=== PATIENT | female | born 1950 | race African-American/Black ===

== ENCOUNTER 2018-01-02 05:38 | Inpatient (IN) | payer MEDICARE, OTHER ==
[~2018-01-02] VITALS: Ht 165.1 cm; Wt 72.6 kg
[2018-01-02] MEDS ORDERED: Albuterol ud Inhalation HHN ONE ×2 (05:45→09:30)
[2018-01-02] MEDS ORDERED: Ipratropium 0.02% Inh Soln 2.5ml UD HHN ONE (05:45)
[2018-01-02] MEDS ORDERED: Solu-MEDROL 125mg Inj IVP ONE (05:45)
--- NOTE | 2018-01-02 05:45 | Emergency Room Report ---
History of Present Illness General Chief Complaint: Dyspnea/Respdistress Source: Patient Present Illness HPI Patient presents with complaints of shortness of breath She reports previous history of COPD Over the past 7 days she has been worsening Even with short exertion She feels increasingly short of breath denies any vomiting denies any diarrhea Denies any recent URI Patient has found herself using her albuterol machine more than usual and is any neck pain or photophobia denies any chest pain Allergies: Coded Allergies: No Known Allergies (Unverified , 01/02/18) Patient History Past Medical History: see triage record Pertinent Family History: none Reviewed Nursing Documentation: PMH: Agreed, PSxH: Agreed Nursing Documentation-PMH Hx COPD: Yes Hx Diabetes: Yes Review of Systems All Other Systems: negative except mentioned in HPI Physical Exam Vital Signs Date Time Temp Pulse Resp B/P (MAP) Pulse Ox O2 Delivery O2 Flow Rate FiO2 01/02/18 05:34 98.0 94 24 197/115 97 Simple Mask 10.0 98.1 Sp02 EP Interpretation: reviewed, normal General Appearance: mild distress - Appears short of breath Head: normocephalic, atraumatic Eyes: bilateral eye PERRL, bilateral eye EOMI ENT: hearing grossly normal, normal pharynx, TMs + canals normal, uvula midline Neck: full range of motion, supple, no meningismus, no bony tend Respiratory: no rhonchi, no respiratory distress, no accessory muscle use, other - Patient has crackles and fine wheezing bilaterally, she is also tachypneic Cardiovascular #1: normal peripheral pulses, regular rate, rhythm, no edema, no gallop, no JVD, no murmur Gastrointestinal: normal bowel sounds, non tender, soft, no mass, no organomegaly, non-distended, no guarding, no hernia, no pulsatile mass, no rebound Genitourinary: no CVA tenderness Musculoskeletal: normal inspection Neurologic: oriented x3, responsive, streetcar starter III-XII nml as tested, motor strength/ tone normal, sensory intact Psychiatric: mood/affect normal Skin: normal color, no rash, warm/dry, palpation normal Lymphatic: normal inspection, no adenopathy Procedures Critical Care Time Critical Care Time 40 minutes for initial critical presentation Shortness of breath and respiratory distress requiring acute intervention Concern for respiratory failure not including any procedural time Medical Decision Making Diagnostic Impression: Primary Impression: COPD exacerbation ER Course Patient is a fairly complex patient with multiple differential to consideration including but not limited to cardiac cardiopulmonary and vascular emergencies Patient initiated emergently on breathing treatments Steroids and magnesium Patient continues to do better in the emergency room However will require further inpatient care Labs Test 01/02/18 05:50 White Blood Count 9.7 K/UL (4.8-10.8) Red Blood Count 4.93 M/UL (4.20-5.40) Hemoglobin 14.4 G/DL (12.0-16.0) Hematocrit 43.6 % (37.0-47.0) Mean Corpuscular Volume 88 FL (80-99) Mean Corpuscular Hemoglobin 29.2 PG (27.0-31.0) Mean Corpuscular Hemoglobin Concent 33.1 G/DL (32.0-36.0) Red Cell Distribution Width 14.2 % (11.6-14.8) Platelet Count 268 K/UL (150-450) Mean Platelet Volume 7.6 FL (6.5-10.1) Neutrophils (%) (Auto) 64.4 % (45.0-75.0) Lymphocytes (%) (Auto) 17.6 % (20.0-45.0) Monocytes (%) (Auto) 5.6 % (1.0-10.0) Eosinophils (%) (Auto) 11.5 % (0.0-3.0) Basophils (%) (Auto) 1.0 % (0.0-2.0) Sodium Level 141 MMOL/L (136-145) Potassium Level 4.0 MMOL/L (3.5-5.1) Chloride Level 104 MMOL/L (98-107) Carbon Dioxide Level 27 MMOL/L (21-32) Anion Gap 10 mmol/L (5-15) Blood Urea Nitrogen 19 mg/dL (7-18) Creatinine 1.1 MG/DL (0.55-1.30) Estimat Glomerular Filtration Rate > 60 mL/min (>60) Glucose Level 120 MG/DL (74-106) Calcium Level 9.3 MG/DL (8.5-10.1) Total Bilirubin 0.2 MG/DL (0.2-1.0) Aspartate Amino Transf (AST/SGOT) 30 U/L (15-37) Alanine Aminotransferase (ALT/SGPT) 34 U/L (12-78) Alkaline Phosphatase 138 U/L (46-116) Total Creatine Kinase 427 U/L (26-308) Creatine Kinase MB 10.3 NG/ML (0.0-3.6) Creatine Kinase MB Relative Index 2.4 Troponin I 0.075 ng/mL (0.000-0.056) Pro-B-Type Natriuretic Peptide 754 pg/mL (0-125) Total Protein 7.5 G/DL (6.4-8.2) Albumin 3.3 G/DL (3.4-5.0) Globulin 4.2 g/dL Albumin/Globulin Ratio 0.8 (1.0-2.7) Lipase 200 U/L (73-393) Rhythm Strip Diag. Results EP Interpretation: yes Rate: 89 Rhythm: NSR, no PVC's, no ectopy Chest X-Ray Diagnostic Results Chest X-Ray Diagnostic Results : Chest X-Ray Ordered: Yes # of Views/Limited/Complete: 1 View Indication: Shortness of Breath EP Interpretation: Yes Interpretation: no consolidation, no effusion, no pneumothorax, no acute cardiopulmonary disease Impression: No acute disease Electronically Signed by: Ugo Parra DO Last Vital Signs Date Time Temp Pulse Resp B/P (MAP) Pulse Ox O2 Delivery O2 Flow Rate FiO2 01/02/18 05:34 98.0 94 24 197/115 97 Simple Mask 10.0 98.1 Status: improved Disposition: ADMITTED INPATIENT Condition: Serious UGO PARRA D.O. Jan 02, 2018 05:45
[2018-01-02 06:32] LABS: EOSINOPHILS % (AUTO) 11.5 % (0.0-3.0); HEMATOCRIT 43.6 % (37.0-47.0); HEMOGLOBIN 14.4 G/DL (12.0-16.0); LYMPHOCYTES % (AUTO) 17.6 % (20.0-45.0); MEAN CORPUSCULAR VOLUME 88 FL (80-99); MONOCYTES % (AUTO) 5.6 % (1.0-10.0); NEUTROPHILS % (AUTO) 64.4 % (45.0-75.0); PLATELET COUNT 268 K/UL (150-450); RED BLOOD COUNT 4.93 M/UL (4.20-5.40); RED CELL DISTRIBUTION WIDTH 14.2 % (11.6-14.8); WHITE BLOOD COUNT 9.7 K/UL (4.8-10.8)
[2018-01-02 06:43] LABS: ANION GAP 10 mmol/L (5-15); BLOOD UREA NITROGEN 19 mg/dL (7-18); CALCIUM 9.3 MG/DL (8.5-10.1); CARBON DIOXIDE 27 MMOL/L (21-32); CHLORIDE 104 MMOL/L (98-107); CREATININE 1.1 MG/DL (0.55-1.30); SODIUM 141 MMOL/L (136-145)
[2018-01-02 06:53] LABS: ALANINE AMINOTRANSFERASE 34 U/L (12-78); ALBUMIN 3.3 G/DL (3.4-5.0); ALBUMIN/GLOBULIN RATIO 0.8 (1.0-2.7); ALKALINE PHOSPHATASE 138 U/L (46-116); ASPARTATE AMINO TRANSFERASE 30 U/L (15-37); BILIRUBIN,TOTAL 0.2 MG/DL (0.2-1.0); CKMB 10.3 NG/ML (0.0-3.6); CREATINE KINASE 427 U/L (26-308)
[2018-01-02 07:17] VITALS: BP 175/79
[2018-01-02 09:45] VITALS: BP 149/79
--- NOTE | 2018-01-02 09:53 | Diagnostic Imaging Report ---
Indication: Dyspnea Comparison: None A single view chest radiograph was obtained. Findings: No definite infiltrate or pulmonary vascular congestion identified. The heart is enlarged. The aorta is mildly enlarged consistent with atherosclerotic vascular disease. The bones are osteopenic. Impression: No acute disease
[2018-01-02] MEDS ORDERED: Albuterol/Ipratropium 3ml neb HHN PRN (10:15)
[2018-01-02] MEDS ORDERED: Nitroglycerin Subl 0.4mg tab SL PRN (10:15)
[2018-01-02] MEDS ORDERED: Flu Vaccine Quadrivalent 0.5ml IM ONE (10:15)
[2018-01-02] MEDS: Ipratropium 0.02% Inh Soln 2.5ml UD HHN SCH ×4 (11:00→23:41)
[2018-01-02 11:45] VITALS: BP 167/79
[2018-01-02 12:25] VITALS: BP 164/97
[2018-01-02] MEDS: NS w/KCl 40mEq 1,000 ML IV SCH ×2 (13:56→23:28)
--- NOTE | 2018-01-02 16:25 | Cardiology Report ---
APPROVED REPORT EKG Measurement Heart [id number] NE [id number] [id number] Sinus rhythm with occasional premature ventricular complexes Possible Left atrial enlargement Left anterior fascicular block Nonspecific ST abnormality Abnormal ECG
[2018-01-02] MEDS ORDERED: traMADol 50mg tab ORAL PRN (18:00)
--- NOTE | 2018-01-02 20:19 | History & Physical ---
History and Physical History & Physicial ID # [id number] Robby Augustine Jan 02, 2018 20:19
[2018-01-02] MEDS: Docusate 100mg cap ORAL SCH (20:30)
[2018-01-02] MEDS: Heparin 5000 units/ml inj SUBQ SCH (20:33)
[2018-01-02] MEDS ORDERED: Zolpidem 5mg tab ORAL PRN (21:00)
[2018-01-02] MEDS ORDERED: Pneumococcal Vaccine 25mcg/0.5ml IM ONE (21:00)
[2018-01-02] MEDS ORDERED: ATORVASTATIN CA20 MG ORAL (21:51)
[2018-01-02] MEDS ORDERED: LISINOPRIL-HCT1 EAC2 ORAL (21:51)
[2018-01-02] MEDS ORDERED: METFORMIN HCL5000 GM MC (21:57)
[2018-01-03] VITALS (9 sets, daily range): BP systolic 155–184; BP diastolic 79–132
[2018-01-03] MEDS: Ipratropium 0.02% Inh Soln 2.5ml UD HHN SCH ×6 (04:10→23:18)
--- NOTE | 2018-01-03 05:15 | History and Physical Report ---
DATE OF ADMISSION: 01/02/2018 NOTE: POOR AUDIO REASON FOR ADMISSION: COPD exacerbation. HISTORY OF PRESENT ILLNESS: The patient is a pleasant 67-year-old female with past medical history significant for COPD, at this time presents with exacerbation of shortness of breath and increasingly short of breath. Denies any diarrhea or constipation. No history of DVT. No history of pulmonary embolism. No history of malignancy at this time. and currently symptoms are improved. Consulted Dr. Nice, pulmonary team. PAST MEDICAL HISTORY: As noted above. PAST SURGICAL HISTORY: None reported. REVIEW OF SYSTEMS: CONSTITUTIONAL: No fevers, chills, or night sweats. SKIN: No rashes, bumps, or itching. HEENT: No headache, hearing or vision changes. BREASTS: No lumps, pain, or discharge. PULMONARY: No cough, sputum, or shortness of breath. GASTROINTESTINAL: No nausea, vomiting, or diarrhea. GENITOURINARY: No dysuria, frequency, or urgency. MUSCULOSKELETAL: No joint swelling, muscle pain, or trauma. PHYSICAL EXAMINATION: VITAL SIGNS: Reviewed. GENERAL: No acute distress. PULMONARY: Decreased breath sounds. CARDIOVASCULAR: Regular rate. No S3 or S4. ABDOMEN: Soft, nontender, and nondistended. EXTREMITIES: No cyanosis, swelling, or edema. LABORATORY DATA: WBC is 9.7, hemoglobin , hematocrit 44, and platelet count 248,000. Chemistry reviewed, BUN of 19, creatinine 1.1, glucose 120. ASSESSMENT AND RECOMMENDATIONS: 1. Chronic obstructive pulmonary disease exacerbation. Recommend the patient to get oxygen as well as steroids as well as breathing treatments. . Pulmonary team consulted. 2. Tachycardia, to hypertension. Closely monitor. Consult the Cardiology Service. Premature ventricular contractions noted. The patient is on telemetry. Closely monitor again. 3. Azotemia. Recommend Nephrology Service evaluation. 4. Hypoalbuminemia and malnutrition. Closely monitor for improvement, potentially secondary to decreased oral intake. 5. secondary to reactive process. I appreciate the consultation. Robby Augustine M.D. DR: Drew JOB#: [id number] CC:
[2018-01-03] MEDS: metFORMIN 500mg tab ORAL SCH ×2 (05:38→17:15)
[2018-01-03] MEDS: Heparin 5000 units/ml inj SUBQ SCH ×3 (05:39→21:18)
[2018-01-03] MEDS: HydrALAZINE 25mg tab ORAL SCH ×4 (05:44→23:39)
[2018-01-03 07:20] LABS: BASOPHILS % (AUTO) 0.9 % (0.0-2.0); EOSINOPHILS % (AUTO) 1.1 % (0.0-3.0); HEMATOCRIT 43.3 % (37.0-47.0); HEMOGLOBIN 14.4 G/DL (12.0-16.0); LYMPHOCYTES % (AUTO) 13.9 % (20.0-45.0); MEAN CORPUSCULAR VOLUME 89 FL (80-99); MONOCYTES % (AUTO) 7.3 % (1.0-10.0); NEUTROPHILS % (AUTO) 76.8 % (45.0-75.0); PLATELET COUNT 292 K/UL (150-450); RED BLOOD COUNT 4.87 M/UL (4.20-5.40); RED CELL DISTRIBUTION WIDTH 14.3 % (11.6-14.8)
[2018-01-03 07:33] LABS: ANION GAP 7 mmol/L (5-15); BLOOD UREA NITROGEN 21 mg/dL (7-18); CALCIUM 9.2 MG/DL (8.5-10.1); CARBON DIOXIDE 27 MMOL/L (21-32); CHLORIDE 105 MMOL/L (98-107); CREATININE 1.1 MG/DL (0.55-1.30); POTASSIUM 4.4 MMOL/L (3.5-5.1); SODIUM 139 MMOL/L (136-145)
--- NOTE | 2018-01-03 07:58 | Cardiology Progress Note ---
Assessment/Plan Assessment/Plan The patient is seen and examined, full consult note will be dictated shortly. Objective Last 24 Hour Vital Signs Date Time Temp Pulse Resp B/P (MAP) Pulse Ox O2 Delivery O2 Flow Rate FiO2 01/03/18 05:44 171/103 01/03/18 04:02 95 01/03/18 04:00 97.9 95 20 171/103 Nasal Cannula 2.0 97.9 01/03/18 03:14 93 20 100 Nasal Cannula 2.0 28 01/03/18 03:02 98 20 100 Nasal Cannula 2.0 28 01/03/18 00:01 97 01/02/18 23:17 103 21 99 Nasal Cannula 2.0 28 01/02/18 23:08 101 22 97 Nasal Cannula 2.0 28 01/02/18 19:50 96 01/02/18 19:40 104 20 97 Room Air 21 01/02/18 19:30 102 20 94 Room Air 21 01/02/18 16:00 95 01/02/18 15:10 93 20 97 Room Air 01/02/18 15:05 105 23 94 Room Air 01/02/18 12:50 102 01/02/18 12:25 98.1 99 20 164/97 94 Nasal Cannula 2.0 28 98.1 01/02/18 12:07 98.1 89 20 167/79 93 Nasal Cannula 2.0 28 98.1 01/02/18 11:45 98.1 89 20 167/79 93 Nasal Cannula 2.0 28 98.1 01/02/18 10:55 85 20 100 Nasal Cannula 2.0 28 01/02/18 10:44 87 23 95 Nasal Cannula 2.0 28 01/02/18 09:45 98.1 89 26 149/79 93 Room Air 10.0 21 98.1 Intake and Output 01/02/18 01/03/18 19:00 07:00 Intake Total 120 ml 1153.3 ml Balance 120 ml 1153.3 ml Intake Oral 120 ml IV Total 1153.3 ml # Voids 2 Laboratory Tests Test 01/03/18 06:20 White Blood Count 14.0 K/UL (4.8-10.8) H Red Blood Count 4.87 M/UL (4.20-5.40) Hemoglobin 14.4 G/DL (12.0-16.0) Hematocrit 43.3 % (37.0-47.0) Mean Corpuscular Volume 89 FL (80-99) Mean Corpuscular Hemoglobin 29.6 PG (27.0-31.0) Mean Corpuscular Hemoglobin Concent 33.3 G/DL (32.0-36.0) Red Cell Distribution Width 14.3 % (11.6-14.8) Platelet Count 292 K/UL (150-450) Mean Platelet Volume 8.6 FL (6.5-10.1) Neutrophils (%) (Auto) 76.8 % (45.0-75.0) H Lymphocytes (%) (Auto) 13.9 % (20.0-45.0) L Monocytes (%) (Auto) 7.3 % (1.0-10.0) Eosinophils (%) (Auto) 1.1 % (0.0-3.0) Basophils (%) (Auto) 0.9 % (0.0-2.0) Activated Partial Thromboplast Time 20 SEC (23-33) L Sodium Level 139 MMOL/L (136-145) Potassium Level 4.4 MMOL/L (3.5-5.1) Chloride Level 105 MMOL/L (98-107) Carbon Dioxide Level 27 MMOL/L (21-32) Anion Gap 7 mmol/L (5-15) Blood Urea Nitrogen 21 mg/dL (7-18) H Creatinine 1.1 MG/DL (0.55-1.30) Estimat Glomerular Filtration Rate > 60 mL/min (>60) Glucose Level 88 MG/DL (74-106) Calcium Level 9.2 MG/DL (8.5-10.1) Magnesium Level 1.9 MG/DL (1.8-2.4) Troponin I Pending SANDER ZAVALA Jan 03, 2018 07:58
--- NOTE | 2018-01-03 08:43 | Consultation ---
History of Present Illness General Date patient seen: Jan 03, 2018 Chief Complaint: Dyspnea/Respdistress Reason for Consultation: dyspnea Present Illness HPI 67 year old female with hx of COPD, smoking presents with complaints of shortness of breath over the past 7 days she has been worsening She feels increasingly short of breath. Patient has found herself using her albuterol machine more than usual and is any neck pain or photophobia denies any chest pain. She is admitted for acute exacerbation of COPD and bronchitis. Allergies: Coded Allergies: No Known Allergies (Unverified , 01/02/18) Medication History Scheduled Atorvastatin Calcium* (Atorvastatin Calcium*), 10 MG ORAL BEDTIME, (Reported) Lisinopril/Hydrochlorothiazide 20-25 Mg Tab (Lisinopril-Hctz 20-25 Mg Tab), 2 TAB ORAL DAILY, (Reported) Metformin Hcl (Metformin Hcl), 500 MG MC BID, (Reported) Patient History Healthcare decision maker Resuscitation status Full Code Advanced Directive on File Past Medical/Surgical History Past Medical/Surgical History: (1) COPD (chronic obstructive pulmonary disease) Review of Systems All Other Systems: negative except mentioned in HPI Physical Exam General Appearance: WD/WN Lines, tubes and drains: peripheral HEENT: normocephalic, atraumatic Neck: non-tender, normal alignment Respiratory/Chest: chest wall non-tender, lungs clear Cardiovascular/Chest: normal peripheral pulses, normal rate Abdomen: normal bowel sounds, non tender Genitourinary/Rectal: normal genital exam Extremities: normal range of motion Skin Exam: normal pigmentation Neurologic: cigar patcher II-XII grossly normal Last 24 Hour Vital Signs Date Time Temp Pulse Resp B/P (MAP) Pulse Ox O2 Delivery O2 Flow Rate FiO2 01/03/18 07:59 94 20 98 Room Air 21 01/03/18 07:50 90 20 93 Room Air 21 01/03/18 07:30 97.9 01/03/18 05:44 171/103 01/03/18 04:02 95 01/03/18 04:00 97.9 95 20 171/103 Nasal Cannula 2.0 97.9 01/03/18 03:14 93 20 100 Nasal Cannula 2.0 28 01/03/18 03:02 98 20 100 Nasal Cannula 2.0 28 01/03/18 00:01 97 01/02/18 23:17 103 21 99 Nasal Cannula 2.0 28 01/02/18 23:08 101 22 97 Nasal Cannula 2.0 28 01/02/18 19:50 96 01/02/18 19:40 104 20 97 Room Air 21 01/02/18 19:30 102 20 94 Room Air 21 01/02/18 16:00 95 01/02/18 15:10 93 20 97 Room Air 01/02/18 15:05 105 23 94 Room Air 01/02/18 12:50 102 01/02/18 12:25 98.1 99 20 164/97 94 Nasal Cannula 2.0 28 98.1 01/02/18 12:07 98.1 89 20 167/79 93 Nasal Cannula 2.0 28 98.1 01/02/18 11:45 98.1 89 20 167/79 93 Nasal Cannula 2.0 28 98.1 01/02/18 10:55 85 20 100 Nasal Cannula 2.0 28 01/02/18 10:44 87 23 95 Nasal Cannula 2.0 28 01/02/18 09:45 98.1 89 26 149/79 93 Room Air 10.0 21 98.1 Intake and Output 01/02/18 01/03/18 19:00 07:00 Intake Total 120 ml 1153.3 ml Balance 120 ml 1153.3 ml Intake Oral 120 ml IV Total 1153.3 ml # Voids 2 Laboratory Tests Test 01/03/18 06:20 White Blood Count 14.0 K/UL (4.8-10.8) H Red Blood Count 4.87 M/UL (4.20-5.40) Hemoglobin 14.4 G/DL (12.0-16.0) Hematocrit 43.3 % (37.0-47.0) Mean Corpuscular Volume 89 FL (80-99) Mean Corpuscular Hemoglobin 29.6 PG (27.0-31.0) Mean Corpuscular Hemoglobin Concent 33.3 G/DL (32.0-36.0) Red Cell Distribution Width 14.3 % (11.6-14.8) Platelet Count 292 K/UL (150-450) Mean Platelet Volume 8.6 FL (6.5-10.1) Neutrophils (%) (Auto) 76.8 % (45.0-75.0) H Lymphocytes (%) (Auto) 13.9 % (20.0-45.0) L Monocytes (%) (Auto) 7.3 % (1.0-10.0) Eosinophils (%) (Auto) 1.1 % (0.0-3.0) Basophils (%) (Auto) 0.9 % (0.0-2.0) Activated Partial Thromboplast Time 20 SEC (23-33) L Sodium Level 139 MMOL/L (136-145) Potassium Level 4.4 MMOL/L (3.5-5.1) Chloride Level 105 MMOL/L (98-107) Carbon Dioxide Level 27 MMOL/L (21-32) Anion Gap 7 mmol/L (5-15) Blood Urea Nitrogen 21 mg/dL (7-18) H Creatinine 1.1 MG/DL (0.55-1.30) Estimat Glomerular Filtration Rate > 60 mL/min (>60) Glucose Level 88 MG/DL (74-106) Calcium Level 9.2 MG/DL (8.5-10.1) Magnesium Level 1.9 MG/DL (1.8-2.4) Troponin I 0.032 ng/mL (0.000-0.056) Height (Feet): 5 Height (Inches): 5.00 Weight (Pounds): 160 Medications Current Medications Medications (Trade) Dose Ordered Sig/Bola Route PRN Reason Start Time Stop Time Status Last Admin Dose Admin Acetaminophen (Tylenol) 650 mg Q4H PRN ORAL Mild Pain (Pain Scale 1-3) 01/02/18 10:15 02/01/18 10:14 01/03/18 06:31 Acetaminophen (Tylenol) 650 mg Q4H PRN ORAL T>100.5 01/02/18 10:15 02/01/18 10:14 Albuterol/ Ipratropium (Albuterol/ Ipratropium) 3 ml Q6H PRN HHN Shortness of Breath 01/02/18 10:15 01/07/18 10:14 Aspirin (ASA) 81 mg DAILY ORAL 01/03/18 09:00 02/02/18 08:59 Atorvastatin Calcium (Lipitor) 10 mg BEDTIME ORAL 01/03/18 21:00 02/02/18 20:59 Dextrose (Dextrose 50%) STAT PRN IV Hypoglycemia 01/02/18 10:15 02/01/18 10:14 Diphenhydramine HCl (Benadryl) 25 mg Q6H PRN ORAL Itching/Pruritis 01/02/18 10:15 02/01/18 10:14 Docusate Sodium (Colace) 100 mg EVERY 12 HOURS ORAL 01/02/18 21:00 02/01/18 20:59 01/02/18 20:30 Heparin Sodium (Porcine) (Heparin 5000 units/ml) 5,000 units EVERY 8 HOURS SUBQ 01/02/18 22:00 02/01/18 21:59 01/03/18 05:39 Hydralazine HCl (Apresoline) 25 mg Q6HR ORAL 01/03/18 06:00 02/02/18 05:59 01/03/18 05:44 Hydrochlorothiazide (Hydrodiuril) 50 mg DAILY ORAL 01/03/18 09:00 02/02/18 08:59 Ipratropium [place] (Atrovent) 0.5 mcg Q4HRT HHN 01/02/18 11:00 01/07/18 10:59 01/03/18 08:05 Lisinopril (Prinivil) 40 mg DAILY ORAL 01/03/18 09:00 02/02/18 08:59 Magnesium Sulfate 100 ml @ 100 mls/hr Q1H IVPB 01/03/18 09:00 01/03/18 10:59 Metformin HCl (Glucophage) 500 mg BID@0630,1630 ORAL 01/03/18 06:30 02/02/18 06:29 01/03/18 05:38 Nitroglycerin (Ntg) 0.4 mg Q5M PRN SL Prn Chest Pain 01/02/18 10:15 02/01/18 10:14 Promethazine HCl/ Codeine (Phenergan with Codeine) 5 ml Q4H PRN ORAL For Cough 01/03/18 08:45 02/02/18 08:44 UNV Sodium Chloride 1,000 ml @ 100 mls/hr Q10H IV 01/02/18 13:00 02/01/18 12:59 01/02/18 23:28 Theophylline (Jesus-Dur) 100 mg EVERY 12 HOURS ORAL 01/03/18 09:00 02/02/18 08:59 UNV Tramadol HCl (Ultram) 50 mg Q8H PRN ORAL Moderate to Severe Pain (4-10) 01/02/18 18:00 01/09/18 17:59 Verapamil HCl (Calan SR) 120 mg DAILY ORAL 01/03/18 09:00 02/02/18 08:59 Zolpidem Tartrate (Ambien) 5 mg HSPRN PRN ORAL Insomnia 01/02/18 21:00 01/09/18 20:59 Assessment/Plan Problem List: (1) Purulent bronchitis ICD Codes: J41.1 - Mucopurulent chronic bronchitis SNOMED: 14743428 (2) COPD exacerbation ICD Codes: J44.1 - Chronic obstructive pulmonary disease with (acute) exacerbation SNOMED: 405514088 Assessment/Plan respiratory treatment iv abx check sputum titrate fio2 to sat of 92% short course of abx RADHA DALLAS Jan 03, 2018 08:43
[2018-01-03] MEDS ORDERED: Promethazine/Codeine 5ml UD ORAL PRN (08:45)
[2018-01-03] MEDS: Docusate 100mg cap ORAL SCH ×2 (09:25→21:15)
[2018-01-03] MEDS: Lisinopril 20mg tab ORAL SCH (09:25)
[2018-01-03] MEDS: Theophylline ER 100mg ORAL SCH ×2 (09:26→21:16)
[2018-01-03] MEDS: Solu-MEDROL 125mg Inj IVP SCH ×4 (09:26→23:39)
[2018-01-03] MEDS: Aspirin Baby 81mg ORAL SCH (09:26)
[2018-01-03] MEDS: NS w/KCl 40mEq 1,000 ML IV SCH ×2 (09:30→18:39)
--- NOTE | 2018-01-03 16:00 | Consultation ---
DATE OF CONSULTATION: 01/03/2018 CARDIOLOGY CONSULTATION CONSULTING PHYSICIAN: Miller Kelly M.D. REFERRING PHYSICIAN: Ugo Gaming M.D. ADDITIONAL REFERRING PHYSICIAN: Robby Augustine M.D. HISTORY OF PRESENT ILLNESS: The patient is a very unfortunate 67-year-old black [place], who presents to the hospital with complaints of shortness of breath, progressively worsening in the past week, not responding to her usual nebulizer and inhalers. The patient has history of chronic obstructive pulmonary disease due to long history of tobacco use. At the time of arrival to the hospital, blood pressure was 197/115 mmHg and heart rate was 94. She had 12-lead electrocardiogram, on arrival to the hospital, was sinus rhythm with no ST and T-wave abnormalities. She showed few . Left premature ventricular contractions. She also showed evidence of LVH consistent with hypertensive heart disease. PAST MEDICAL HISTORY: 1. COPD. 2. Hypertension. 3. Diabetes mellitus. MEDICATIONS: List of medications at home include atorvastatin 10 mg p.o. at bedtime, lisinopril and hydrochlorothiazide 20/25 mg two tablets daily, and metformin 500 mg twice daily. FAMILY HISTORY: No premature coronary artery disease in first-degree relatives. SOCIAL HISTORY: The patient is a heavy smoker. Denies any alcohol or illicit drug use. REVIEW OF SYSTEMS: HEENT: Denies any headache, diplopia, or blurred vision. CONSTITUTIONAL: CARDIOVASCULAR: Denies any chest pain. She has got shortness of breath. Denies any PND, orthopnea, leg swelling, or palpitations. PULMONARY: Complaining of cough, shortness of breath, and wheezing. GASTROINTESTINAL: Denies any nausea, vomiting, diarrhea, constipation, abdominal pain, or GI bleed. GENITOURINARY: Denies any hematuria, dysuria, or incontinence. NEUROLOGIC: Denies any motor dysfunction, sensory deficits, or altered speech. PHYSICAL EXAMINATION: VITAL SIGNS: Blood pressure was 197/115, respirations 24, pulse of 94, O2 saturation 97% on simple mask, and temperature 98.0 degrees Fahrenheit. GENERAL: The patient is a very unfortunate 67-year-old lady, in no apparent respiratory distress. Alert and oriented x4. HEENT: Atraumatic and normocephalic. Anicteric. Pupils are equal, round, and reactive to light and accommodation. Extraocular muscles intact. NECK: JVP less than 5 cm. No carotid bruit. Carotid upstroke is 2+ bilaterally. CARDIOVASCULAR: Normal S1 and S2. Regular rate and rhythm. No murmurs, gallops, or rubs. PMI is at fourth intercostal space at the midclavicular line. LUNGS: Diminished breath sounds. Bilateral rhonchi, prolonged expiratory phase. ABDOMEN: Soft, nontender, and nondistended. No hepatosplenomegaly. Positive bowel sounds. EXTREMITIES: No evidence of edema, clubbing, or cyanosis. LABORATORY FINDINGS: WBC of 9.7, hemoglobin of 14.4, hematocrit of 43.6, and platelet count was 268. Sodium is 141, potassium 4.0, chloride 104, bicarbonate 27, BUN of 19, creatinine 1.1, glucose is 120, and calcium is 9.3. Troponin I was 0.075 and proBNP was 754. A 12-lead electrocardiogram, sinus rhythm at a rate of 89 with left axis deviation, LVH with single ventricular premature complexes. Chest x-ray showed no acute cardiopulmonary disease. ASSESSMENT AND PLAN: The patient is a very pleasant 67-year-old female, seen in Cardiology consultation at request of Dr. Augustine /Dr. Gaming. 1. Dyspnea in this patient is likely due to acute exacerbation of chronic obstructive pulmonary disease. IV steroids, pulmonary toilet, oxygen and inhalers on a regular basis. The Pulmonary consultation is required. We will obtain 2D echocardiography to assess left ventricular systolic function as well as pulmonary hypertension, RA and RV cavity size. Further therapeutic and diagnostic decision will be based on results of echocardiography. 2. Ventricular premature complexes, asymptomatic. Does not require any treatment at this time. 3. History of accelerated hypertension. The patient will benefit from calcium-channel leida. We will consider verapamil 180 mg p.o. daily. I would consider avoiding beta-blockers given acute bronchoconstriction. 4. Diabetes mellitus. Aspirin and atorvastatin recommended. I would like to thank Dr. Gaming and Dr. Augustine, for the courtesy of this consultation. Miller Kelly M.D. DR: MELONY JOB#: [id number] CC:
[2018-01-04] VITALS: BP 162/88
--- NOTE | 2018-01-04 01:13 | General Progress Note ---
Assessment/Plan Assessment/Plan 1. Chronic obstructive pulmonary disease exacerbation. --> Recommend the patient to get oxygen as well as steroids as well as breathing treatments. --> Pulmonary team consulted. 2. Tachycardia, secondary to hypertension. --> Closely monitor. Consult the Cardiology Service. --> Premature ventricular contractions noted. --> The patient is on telemetry. Closely monitor again. 3. Azotemia. Recommend Nephrology Service evaluation. 4. Hypoalbuminemia and malnutrition. --> Closely monitor for improvement, potentially secondary to decreased oral intake. Subjective Date patient seen: Jan 03, 2018 Constitutional: Denies: no symptoms, chills, diaphoresis, fever, malaise, weakness, other HEENT: Denies: no symptoms, eye pain, blurred vision, tearing, double vision, ear pain, ear discharge, nose pain, nose congestion, throat pain, throat swelling, mouth pain, mouth swelling, other Cardiovascular: Denies: no symptoms, chest pain, edema, irregular heart rate, lightheadedness, palpitations, syncope, other Respiratory: Denies: no symptoms, cough, orthopnea, shortness of breath, SOB with excertion, SOB at rest, sputum, stridor, wheezing, other Gastrointestinal/Abdominal: Denies: no symptoms, abdomen distended, abdominal pain, black stools, tarry stools, blood in stool, constipated, diarrhea, difficulty swallowing, nausea, poor appetite, poor fluid intake, rectal bleeding , vomiting, other Genitourinary: Denies: no symptoms, burning, discharge, frequency, flank pain, hematuria, incontinence, pain, urgency, other Neurologic/Psychiatric: Denies: no symptoms, anxiety, depressed, emotional problems, headache, numbness, paresthesia, pre-existing deficit, seizure, tingling, tremors, weakness, other Hematologic/Lymphatic: Reports: anemia Allergies: Coded Allergies: No Known Allergies (Unverified , 01/02/18) Subjective On oxygen support. Hypertensive and tachycardic. Objective Last 24 Hour Vital Signs Date Time Temp Pulse Resp B/P (MAP) Pulse Ox O2 Delivery O2 Flow Rate FiO2 01/04/18 00:00 80 01/03/18 23:39 184/85 01/03/18 23:30 97.7 86 20 184/85 Room Air 97.0 97.7 01/03/18 23:26 82 20 100 Nasal Cannula 21 01/03/18 23:18 91 20 95 Nasal Cannula 21 01/03/18 20:00 98.0 90 20 160/98 Room Air 97.0 98.0 01/03/18 20:00 101 01/03/18 19:54 93 20 99 Nasal Cannula 2.0 28 01/03/18 19:47 90 20 96 Nasal Cannula 2.0 28 01/03/18 18:00 88 159/104 01/03/18 17:16 161/132 01/03/18 16:50 83 161/132 01/03/18 16:00 97.5 83 19 175/94 97 Nasal Cannula 2.0 97.5 01/03/18 15:50 88 20 100 Nasal Cannula 3.0 32 01/03/18 15:43 82 20 99 Nasal Cannula 3.0 32 01/03/18 15:11 83 01/03/18 14:25 89 155/79 01/03/18 12:23 177/91 01/03/18 12:16 97.7 96 18 177/91 95 Nasal Cannula 2.0 97.7 01/03/18 12:05 90 01/03/18 11:13 87 20 100 Nasal Cannula 3.0 32 01/03/18 11:05 86 20 100 Nasal Cannula 3.0 32 01/03/18 09:26 81 160/95 01/03/18 09:25 160/95 01/03/18 08:05 102 01/03/18 08:00 97.7 81 18 160/95 99 Nasal Cannula 2.0 97.7 01/03/18 07:59 94 20 98 Room Air 21 01/03/18 07:51 98 01/03/18 07:50 90 20 93 Room Air 21 01/03/18 07:30 97.9 01/03/18 05:44 171/103 01/03/18 04:02 95 01/03/18 04:00 97.9 95 20 171/103 Nasal Cannula 2.0 97.9 01/03/18 03:14 93 20 100 Nasal Cannula 2.0 28 01/03/18 03:02 98 20 100 Nasal Cannula 2.0 28 Intake and Output 01/03/18 01/04/18 19:00 07:00 Intake Total 1772 ml 500 ml Balance 1772 ml 500 ml Intake Oral 472 ml IV Total 1300 ml 500 ml # Voids 2 Laboratory Tests 01/03/18 06:20: White Blood Count 14.0H, Red Blood Count 4.87, Hemoglobin 14.4, Hematocrit 43.3 , Mean Corpuscular Volume 89, Mean Corpuscular Hemoglobin 29.6, Mean Corpuscular Hemoglobin Concent 33.3, Red Cell Distribution Width 14.3, Platelet Count 292, Mean Platelet Volume 8.6, Neutrophils (%) (Auto) 76.8H, Lymphocytes ( %) (Auto) 13.9L, Monocytes (%) (Auto) 7.3, Eosinophils (%) (Auto) 1.1, Basophils (%) (Auto) 0.9, Activated Partial Thromboplast Time 20L, Sodium Level 139, Potassium Level 4.4, Chloride Level 105, Carbon Dioxide Level 27, Anion Gap 7, Blood Urea Nitrogen 21H, Creatinine 1.1, Estimat Glomerular Filtration Rate > 60, Glucose Level 88, Calcium Level 9.2, Magnesium Level 1.9, Troponin I 0.032 Height (Feet): 5 Height (Inches): 5.00 Weight (Pounds): 160 Cardiovascular: tachycardia Respiratory/Chest: decreased breath sounds Abdomen: non tender, soft Edema: trace edema Robby Augustine Jan 04, 2018 01:13
[2018-01-04] MEDS: Ipratropium 0.02% Inh Soln 2.5ml UD HHN SCH ×3 (03:37→10:37)
[2018-01-04 04:08] VITALS: BP 159/104
[2018-01-04] MEDS: NS w/KCl 40mEq 1,000 ML IV SCH (04:47)
[2018-01-04] MEDS: Solu-MEDROL 125mg Inj IVP SCH ×2 (06:20→12:53)
[2018-01-04] MEDS: HydrALAZINE 25mg tab ORAL SCH ×2 (06:20→12:52)
[2018-01-04] MEDS: metFORMIN 500mg tab ORAL SCH (06:20)
[2018-01-04] MEDS: Heparin 5000 units/ml inj SUBQ SCH (06:21)
[2018-01-04 08:00] VITALS: BP 152/87
[2018-01-04] MEDS: Docusate 100mg cap ORAL SCH (09:28)
[2018-01-04] MEDS: Lisinopril 20mg tab ORAL SCH (09:28)
[2018-01-04] MEDS: Theophylline ER 100mg ORAL SCH (09:28)
[2018-01-04] MEDS: Aspirin Baby 81mg ORAL SCH (09:28)
[2018-01-04 12:00] VITALS: BP 167/94
[2018-01-04 12:52] VITALS: BP 167/94
--- NOTE | 2018-01-04 13:16 | Pulmonology Progress Note ---
Assessment/Plan Problems: (1) Purulent bronchitis (2) COPD exacerbation Assessment/Plan imprving less cough taper steroids contine oral abx and steroids dc home with new meds prescription written Subjective Interval Events: less cough Allergies: Coded Allergies: No Known Allergies (Unverified , 01/02/18) Objective Last 24 Hour Vital Signs Date Time Temp Pulse Resp B/P (MAP) Pulse Ox O2 Delivery O2 Flow Rate FiO2 01/04/18 12:52 167/94 01/04/18 12:00 97.2 82 20 167/94 92 Nasal Cannula 2.0 97.2 01/04/18 10:37 88 20 100 Nasal Cannula 2.0 28 01/04/18 10:32 89 20 99 Nasal Cannula 2.0 28 01/04/18 09:28 96 152/87 01/04/18 09:28 152/87 01/04/18 08:43 96 20 100 Nasal Cannula 2.0 28 01/04/18 08:40 94 20 99 Nasal Cannula 2.0 28 01/04/18 08:00 96.3 94 20 152/87 92 Nasal Cannula 2.0 96.3 01/04/18 06:20 156/98 01/04/18 04:08 97.9 88 20 159/104 97 Nasal Cannula 2.0 97.9 01/04/18 04:00 97 01/04/18 03:50 88 20 100 Nasal Cannula 21 01/04/18 03:37 88 20 95 Nasal Cannula 21 01/04/18 00:00 80 01/04/18 00:00 85 20 162/88 97 Nasal Cannula 2.0 01/03/18 23:39 184/85 01/03/18 23:30 97.7 86 20 184/85 97 Room Air 97.7 01/03/18 23:26 82 20 100 Nasal Cannula 21 01/03/18 23:18 91 20 95 Nasal Cannula 21 01/03/18 20:00 98.0 90 20 160/98 97 Room Air 98.0 01/03/18 20:00 101 01/03/18 19:54 93 20 99 Nasal Cannula 2.0 28 01/03/18 19:47 90 20 96 Nasal Cannula 2.0 28 01/03/18 18:00 88 159/104 01/03/18 17:16 161/132 01/03/18 16:50 83 161/132 01/03/18 16:00 97.5 83 19 175/94 97 Nasal Cannula 2.0 97.5 01/03/18 15:50 88 20 100 Nasal Cannula 3.0 32 01/03/18 15:43 82 20 99 Nasal Cannula 3.0 32 01/03/18 15:11 83 01/03/18 14:25 89 155/79 Intake and Output 01/03/18 01/04/18 19:00 07:00 Intake Total 1772 ml 1200 ml Balance 1772 ml 1200 ml Intake Oral 472 ml IV Total 1300 ml 1200 ml # Voids 2 Objective General Appearance: WD/WN Lines, tubes and drains: peripheral HEENT: normocephalic, atraumatic Neck: non-tender, normal alignment Respiratory/Chest: chest wall non-tender, lungs clear Cardiovascular/Chest: normal peripheral pulses, normal rate Abdomen: normal bowel sounds, non tender Genitourinary/Rectal: normal genital exam, normal rectal exam Extremities: normal range of motion, non-tender Skin Exam: normal pigmentation 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 Microbiology Date/Time Source Procedure Growth Status 01/02/18 06:05 Blood Blood Culture - Preliminary NO GROWTH AFTER 24 HOURS Resulted 01/02/18 05:50 Blood Blood Culture - Preliminary NO GROWTH AFTER 24 HOURS Resulted Laboratory Tests 01/04/18 06:35: Troponin I 0.021 Current Medications Medications (Trade) Dose Ordered Sig/Bola Route PRN Reason Start Time Stop Time Status Last Admin Dose Admin Acetaminophen (Tylenol) 650 mg Q4H PRN ORAL Mild Pain (Pain Scale 1-3) 01/02/18 10:15 02/01/18 10:14 01/03/18 06:31 Acetaminophen (Tylenol) 650 mg Q4H PRN ORAL T>100.5 01/02/18 10:15 02/01/18 10:14 Albuterol/ Ipratropium (Albuterol/ Ipratropium) 3 ml Q6H PRN HHN Shortness of Breath 01/02/18 10:15 01/07/18 10:14 Aspirin (ASA) 81 mg DAILY ORAL 01/03/18 09:00 02/02/18 08:59 01/04/18 09:28 Atorvastatin Calcium (Lipitor) 10 mg BEDTIME ORAL 01/03/18 21:00 02/02/18 20:59 01/03/18 21:15 Dextrose (Dextrose 50%) STAT PRN IV Hypoglycemia 01/02/18 10:15 02/01/18 10:14 Diphenhydramine HCl (Benadryl) 25 mg Q6H PRN ORAL Itching/Pruritis 01/02/18 10:15 02/01/18 10:14 01/03/18 13:26 Docusate Sodium (Colace) 100 mg EVERY 12 HOURS ORAL 01/02/18 21:00 02/01/18 20:59 01/04/18 09:28 Heparin Sodium (Porcine) (Heparin 5000 units/ml) 5,000 units EVERY 8 HOURS SUBQ 01/02/18 22:00 02/01/18 21:59 01/04/18 06:21 Hydralazine HCl (Apresoline) 25 mg Q6HR ORAL 01/03/18 06:00 02/02/18 05:59 01/04/18 12:52 Hydrochlorothiazide (Hydrodiuril) 50 mg DAILY ORAL 01/03/18 09:00 02/02/18 08:59 01/04/18 09:28 Ipratropium Tully (Atrovent) 0.5 mcg Q4HRT HHN 01/02/18 11:00 01/07/18 10:59 01/04/18 10:37 Levofloxacin 100 ml @ 100 mls/hr Q24H IVPB 01/03/18 10:00 01/10/18 09:59 01/04/18 09:29 Lisinopril (Prinivil) 40 mg DAILY ORAL 01/03/18 09:00 02/02/18 08:59 01/04/18 09:28 Metformin HCl (Glucophage) 500 mg BID@0630,1630 ORAL 01/03/18 06:30 02/02/18 06:29 01/04/18 06:20 Methylprednisolone Sodium Succinate (Solu-MEDROL) 60 mg EVERY 6 HOURS IVP 01/03/18 08:45 02/02/18 08:44 01/04/18 12:53 Nitroglycerin (Ntg) 0.4 mg Q5M PRN SL Prn Chest Pain 01/02/18 10:15 02/01/18 10:14 Promethazine HCl/ Codeine (Phenergan with Codeine) 5 ml Q4H PRN ORAL For Cough 01/03/18 08:45 02/02/18 08:44 Sodium Chloride 1,000 ml @ 100 mls/hr Q10H IV 01/02/18 13:00 02/01/18 12:59 01/04/18 04:47 Theophylline (Jesus-Dur) 100 mg EVERY 12 HOURS ORAL 01/03/18 09:00 02/02/18 08:59 01/04/18 09:28 Tramadol HCl (Ultram) 50 mg Q8H PRN ORAL Moderate to Severe Pain (4-10) 01/02/18 18:00 01/09/18 17:59 Verapamil HCl (Calan SR) 120 mg DAILY ORAL 01/03/18 09:00 02/02/18 08:59 01/04/18 09:28 Zolpidem Tartrate (Ambien) 5 mg HSPRN PRN ORAL Insomnia 01/02/18 21:00 01/09/18 20:59 01/03/18 21:15 RADHA DALLAS Jan 04, 2018 13:16
[2018-01-04] MEDS ORDERED: Tubing IV Secondary IV ONE (15:19)
--- NOTE | 2018-01-04 16:54 | Discharge Summary ---
Discharge Summary Hospital Course Date of Admission Jan 02, 2018 at 07:02 Date of Discharge Jan 04, 2018 at 15:20 Admitting Diagnosis copd exacerbation, hypoxia HPI John Bella is a 67 year old female who was admitted on Jan 02, 2018 at 07:02 for Chronic Obstructive Pulmonary Disease Exacerbation Hospital Course [id number] Discharge Discharge Disposition Patient was discharged to Home (01) Discharge Diagnoses: Sunita Wilkerson NP Jan 04, 2018 16:54
--- NOTE | 2018-01-05 04:00 | Discharge Summary 2 SIG ---
DATE OF ADMISSION: 01/02/2018 DATE OF DISCHARGE: 01/04/2018 ATTENDING DOCTOR: Robby Augustine M.D. CONSULTANTS: 1. Abby Nice M.D. 2. Miller Kelly M.D. BRIEF HOSPITAL COURSE: The patient is a 67-year-old female with medical history significant for chronic obstructive pulmonary disease, presented to ED complaining of shortness of breath over the past seven days that has been worsening. On evaluation at ED, she was given breathing treatments and was started on IV steroids. Blood work did not show any leukocytosis. Troponin was negative. She had a chest x-ray done that showed no acute cardiopulmonary disease. EKG was in normal sinus rhythm. She was admitted for chronic obstructive pulmonary disease exacerbation. She was initially tachycardic and had high blood pressure. She was given O2 and breathing treatments. She was started on Solu-Medrol and levofloxacin. Blood culture did not isolate any growth. She had elevated blood pressure and was given lisinopril. Avoid beta-leida, given acute bronchoconstriction. The patient had diabetes mellitus and was continued on Glucophage. She was given Lipitor and aspirin. Troponins were negative. She was saturating well. Steroids were tapered. She was eventually discharged home to continue oral antibiotics and steroids. FINAL DIAGNOSES: 1. Acute chronic obstructive pulmonary disease exacerbation. 2. Purulent bronchitis. DISPOSITION: The patient was discharged home. DISCHARGE MEDICATIONS: Refer to medication list. DISCHARGE INSTRUCTIONS: Follow up with PMD in a week. Abby Nice M.D. I have been assigned to dictate discharge summary on this account and I was not involved in the patient's management. Sunita Wilkerson N.P. DR: AMAURI JOB#: [id number] CC: LINDA
[2018-01-05] MEDS ORDERED: Solu-MEDROL 125mg Inj IVP SCH (09:00)
--- NOTE | 2018-01-05 09:11 | General Progress Note ---
Assessment/Plan Status: stable Assessment/Plan 1. Chronic obstructive pulmonary disease exacerbation. --> Recommend the patient to get oxygen as well as steroids as well as breathing treatments. --> Pulmonary team consulted. --> Improved. 2. Tachycardia, secondary to hypertension. --> Improved. --> Closely monitor. Consult the Cardiology Service. --> Premature ventricular contractions noted. --> The patient is on telemetry. Closely monitor again. 3. Azotemia. Recommend Nephrology Service evaluation. 4. Hypoalbuminemia and malnutrition. --> Closely monitor for improvement, potentially secondary to decreased oral intake. Subjective Date patient seen: Jan 04, 2018 Constitutional: Denies: no symptoms, chills, diaphoresis, fever, malaise, weakness, other HEENT: Denies: no symptoms, eye pain, blurred vision, tearing, double vision, ear pain, ear discharge, nose pain, nose congestion, throat pain, throat swelling, mouth pain, mouth swelling, other Cardiovascular: Denies: no symptoms, chest pain, edema, irregular heart rate, lightheadedness, palpitations, syncope, other Respiratory: Denies: no symptoms, cough, orthopnea, shortness of breath, SOB with excertion, SOB at rest, sputum, stridor, wheezing, other Gastrointestinal/Abdominal: Denies: no symptoms, abdomen distended, abdominal pain, black stools, tarry stools, blood in stool, constipated, diarrhea, difficulty swallowing, nausea, poor appetite, poor fluid intake, rectal bleeding , vomiting, other Genitourinary: Denies: no symptoms, burning, discharge, frequency, flank pain, hematuria, incontinence, pain, urgency, other Neurologic/Psychiatric: Denies: no symptoms, anxiety, depressed, emotional problems, headache, numbness, paresthesia, pre-existing deficit, seizure, tingling, tremors, weakness, other Allergies: Coded Allergies: No Known Allergies (Unverified , 01/02/18) Subjective On oxygen support. BP and HR improved today. NAD. Objective Last 24 Hour Vital Signs Date Time Temp Pulse Resp B/P (MAP) Pulse Ox O2 Delivery O2 Flow Rate FiO2 01/04/18 12:52 167/94 01/04/18 12:00 83 01/04/18 12:00 97.2 82 20 167/94 92 Nasal Cannula 2.0 97.2 01/04/18 10:37 88 20 100 Nasal Cannula 2.0 01/04/18 10:32 89 20 99 Nasal Cannula 2.0 28 01/04/18 09:28 96 152/87 01/04/18 09:28 152/87 Intake and Output 01/04/18 01/05/18 19:00 07:00 Intake Total 650 ml Balance 650 ml Intake Oral 650 ml # Voids 2 Height (Feet): 5 Height (Inches): 5.00 Weight (Pounds): 160 General Appearance: no apparent distress Respiratory/Chest: decreased breath sounds Abdomen: non tender, soft Robby Augustine Jan 05, 2018 09:11
--- NOTE | 2018-01-09 11:22 | Cardiology Report ---
APPROVED REPORT EXAM: Two-dimensional and M-mode echocardiogram with Doppler and color Doppler. INDICATION SOB M-Mode DIMENSIONS IVSd0.9 (0.7-1.1cm)Left Atrium (MM)3.9 (1.6-4.0cm) LVDd5.0 (3.5-5.6cm)Aortic Root2.6 (2.0-3.7cm) PWd1.3 (0.7-1.1cm)Aortic Cusp Exc.1.7 (1.5-2.0cm) LVDs3.2 (2.5-4.0cm) PWs1.6 cm Normal left ventricular chamber size, systolic function and wall motion. Left ventricular ejection fraction estimated to be 65 %. Mild left ventricular hypertrophy by 2-D. Anterior Echo-free space, may be due to pericardial fat or effusion. All other cardiac chamber sizes are within normal limits. Focal aortic valve sclerosis with adequate cusp excursion. Thickened mitral valve leaflets with normal excursion. Mitral annulus and aortic root calcification. Pulmonic valve not well visualized. Normal tricuspid valve structure. IVC at normal size with physiologic collapse. A color flow and spectral Doppler study was performed and revealed: Trace aortic regurgitation. Mild mitral regurgitation. Mitral diastolic velocities suggest reduced left ventricular relaxation c/w mild LV diastolic dysfunction (Grade I ). Mild tricuspid regurgitation. Tricuspid systolic velocities suggests peak right ventricular systolic pressure of 52 mmHg, consistent with moderate pulmonary hypertension. Mild pulmonic regurgitation present.
== END 2018-01-04 15:20 | disposition home or self-care (01) | DRG 191 ==
LOC: EDBD 05:38 → EMR 06:44 → 2E 07:02 → EDBEDREQ 11:08
DX: J44.1 Chronic obstructive pulmonary disease with (acute) exacerbation (principal); E46 Unspecified protein-calorie malnutrition; I11.9 Hypertensive heart disease without heart failure; I10 Essential (primary) hypertension; R79.89 Other specified abnormal findings of blood chemistry; Z72.0 Tobacco use; R00.0 Tachycardia, unspecified; I49.3 Ventricular premature depolarization; E11.9 Type 2 diabetes mellitus without complications; Z79.84 Long term (current) use of oral hypoglycemic drugs
CPT/HCPCS: 36415; 71045; 80048; 80053; 82550; 82553; 82962; 83690; 83735; 83880; 84484; 85025; 85730; 87040; 90732; 93005; 93306; 94640; 99291; J7620